=== PATIENT | female | born 1990 | race Caucasian/White ===

== ENCOUNTER 2017-02-14 15:14 | Emergency (ER) | payer OTHER ==
[~2017-02-14] VITALS: Ht 175.3 cm; Wt 73.0 kg
[~2017-02-14 15:14] MED LIST: NORE0.356 PO; [UNRECOGNIZED DRUG - REMARK]
--- NOTE | 2017-02-14 15:20 | NUR ---
bib fiance due to sob x 1 hour. Patient is complaining of pain on right lower rib during inspiration. Patient is aao3, appears in anxious at this time,. Reported nausea, no vomitting. No chest pain,. Skinis warm to touch and non diahoretic. afebrile. vss. gowned and placed on tele monitor. Iv inserted to right wrist 20. blood sample sent to lab
[2017-02-14] MEDS ORDERED: predniSONE 20 MG TABLET ONE (15:48)
[2017-02-14] MEDS ORDERED: ONDANSETRON HCL/PF 4 MG/2 ML VIAL ONE (15:48)
[2017-02-14] MEDS ORDERED: MORPHINE SULFATE INJ 4 MG/ML DISP.SYRIN ONE (15:48)
[2017-02-14 15:50] LABS: BASOPHILS % (AUTO) 0.6 % (0.0-2.0); EOSINOPHILS # (AUTO) 0.1 /CMM (0.0-0.7); EOSINOPHILS % (AUTO) 2.2 % (0.0-6.0); HEMATOCRIT 44 % (33-45); HEMOGLOBIN 14.7 g/dL (11.5-14.8); LYMPHOCYTES # (AUTO) 1.9 /CMM (0.8-4.8); MEAN CORPUSCULAR HEMOGLOBIN 31 PG (26.0-33.0); MEAN CORPUSCULAR HGB CONC 34 g/dl (31.0-36.0); MEAN CORPUSCULAR VOLUME 91 fL (82-100); MONOCYTES # (AUTO) 0.4 /CMM (0.1-1.30); NEUTROPHILS % (AUTO) 61.2 % (43.0-81.0); PLATELET COUNT (AUTO) 231 /CMM (150-450); RDW COEFFICIENT OF VARIATION 12.4 (11.5-15.0); RED BLOOD CELL COUNT(AUTO) 4.83 MIL/uL (4.0-5.2); WHITE BLOOD COUNT (AUTO) 6.4 K/uL (4.3-11.0)
--- NOTE | 2017-02-14 15:56 | NUR ---
medicated pt for pain
--- NOTE | 2017-02-14 15:57 | NUR ---
kong ashanti at
[2017-02-14] MEDS ORDERED: ONDANSETRON HCL/PF 4 MG/2 ML VIAL IVP ONE (16:00)
[2017-02-14] MEDS ORDERED: MORPHINE SULFATE INJ 2 MG/ML DISP.SYRIN IV ONE (16:00)
[2017-02-14] MEDS ORDERED: predniSONE 20 MG TABLET PO ONE (16:00)
[2017-02-14 16:05] LABS: CALCIUM, SERUM 9.5 mg/dL (8.5-10.1); CREATININE 0.9 mg/dL (0.6-1.3); POTASSIUM 3.9 mmol/L (3.5-5.1)
[2017-02-14 16:11] LABS: ALBUMIN 4.8 g/dL (3.4-5.0); BILIRUBIN,DIRECT 0.1 mg/dL (0.0-0.2); BILIRUBIN,TOTAL 1.2 mg/dL (0.2-1.0)
[2017-02-14] MEDS ORDERED: KETOROLAC TROMETHAMINE INJ 30 MG/ML VIAL ONE (16:39)
[2017-02-14] MEDS ORDERED: METOCLOPRAMIDE HCL 10 MG/2 ML VIAL ONE (16:39)
[2017-02-14] MEDS ORDERED: KETOROLAC TROMETHAMINE INJ 30 MG/ML VIAL IV ONE (17:00)
[2017-02-14] MEDS ORDERED: METOCLOPRAMIDE HCL 10 MG/2 ML VIAL IV ONE (17:00)
[2017-02-14 17:24] VITALS: BP 120/70
--- NOTE | 2017-02-14 17:24 | NUR ---
Patient discharged to home in stable condition. Written and verbal after care instructions given. Patient verbalizes understanding of instruction.
== END 2017-02-14 17:25 | disposition home or self-care (01) ==
LOC: ER 15:15
DX: R07.81 Pleurodynia (principal); E11.9 Type 2 diabetes mellitus without complications; F17.200 Nicotine dependence, unspecified, uncomplicated; J45.909 Unspecified asthma, uncomplicated; K58.9 Irritable bowel syndrome, unspecified; Z88.6 Allergy status to analgesic agent
CPT/HCPCS: 36415; 71010; 76705; 80048; 80076; 84703; 85025; 96374; 96375; 99285; A4606; J1885; J2270; J2405; J2765; J7512; Z7610

== ENCOUNTER 2017-03-02 09:24 | Emergency (ER) | payer SELFPAY ==
[~2017-03-02] VITALS: Ht 175.3 cm; Wt 72.6 kg
--- NOTE | 2017-03-02 09:36 | NUR ---
Presents self to ed due to epigastric pain x 2 days, 06/22. Pt also reported nausea and vomitting,. In no acute distress,respiration even and unlabored. Skin is warm to touch and non dipahoretic. Pt is afebrile. Vss. No hematuria nor dysuria. Awaiting for md [place]
--- NOTE | 2017-03-02 09:48 | NUR ---
LAC #20 IV ACCESS BLOOD SAMPLE COLLECTED SENT TO LAB
--- NOTE | 2017-03-02 09:49 | NUR ---
AT BEDSIDE FOR EVAL
--- NOTE | 2017-03-02 09:51 | NUR ---
URINE SAMPLE COLLECTED SENT TO LAB
[2017-03-02] MEDS ORDERED: FAMOTIDINE (20 MG) 20 MG TABLET ONE (09:59)
[2017-03-02] MEDS ORDERED: MAG HYDROX/AL HYDROX/SIMETH 30 ML UDC ONE (09:59)
[2017-03-02] MEDS ORDERED: KETOROLAC TROMETHAMINE INJ 30 MG/ML VIAL IV ONE (10:00)
[2017-03-02] MEDS ORDERED: ONDANSETRON HCL/PF 4 MG/2 ML VIAL IVP ONE (10:00)
[2017-03-02] MEDS ORDERED: IV NS 0.9% 1,000 ML BAG IV ONE (10:00)
[2017-03-02] MEDS ORDERED: MAG HYDROX/AL HYDROX/SIMETH 30 ML UDC PO ONE (10:00)
[2017-03-02] MEDS ORDERED: IV NS 0.9% 1,000 ML ONE (10:00)
[2017-03-02] MEDS ORDERED: FAMOTIDINE (20 MG) 20 MG TABLET PO ONE (10:00)
[2017-03-02] MEDS ORDERED: IV SET PRIMARY PUMP SET 1 EA INFUS.SET MC ONE (10:00)
[2017-03-02] MEDS ORDERED: ONDANSETRON HCL/PF 4 MG/2 ML VIAL ONE (10:00)
[2017-03-02] MEDS ORDERED: KETOROLAC TROMETHAMINE INJ 30 MG/ML VIAL ONE (10:00)
[2017-03-02 10:05] LABS: APPEARANCE,URINE Clear (CLEAR); BILIRUBIN,URINE Negative (NEGATIVE); BLOOD, URINE Negative Ery/uL (NEGATIVE); COLOR,URINE Yellow (YELLOW); KETONES,URINE Negative (NEGATIVE); LEUKOCYTE ESTERASE ,URINE Negative (NEGATIVE); NITRITE, URINE Negative (NEGATIVE); PH,URINE 5.5 (5.0-8.0); PROTEIN,URINE Negative (NEGATIVE); UGLUCOSE Negative (NEGATIVE); UROBILINOGEN,URINE 0.2 EU/dL (0.2)
[2017-03-02 10:06] LABS: PREGNANCY TEST URINE QUAL NEGATIVE (NEGATIVE)
--- NOTE | 2017-03-02 10:28 | NUR ---
XRAY AT BEDSIDE
[2017-03-02] MEDS ORDERED: METOCLOPRAMIDE HCL 10 MG/2 ML VIAL ONE (10:49)
[2017-03-02] MEDS ORDERED: METOCLOPRAMIDE HCL 10 MG/2 ML VIAL IV ONE (11:00)
--- NOTE | 2017-03-02 11:41 | NUR ---
IV removed. Catheter intact and site benign. Pressure and 4x4 applied to site. No bleeding noted. Patient discharged to home in stable condition. Written and verbal after care instructions given. Patient verbalizes understanding of instruction.
[2017-03-02 11:42] VITALS: BP 115/78
== END 2017-03-02 11:42 | disposition home or self-care (01) ==
LOC: ER 09:26
DX: R11.2 Nausea with vomiting, unspecified (principal); R19.7 Diarrhea, unspecified; J45.909 Unspecified asthma, uncomplicated; E11.9 Type 2 diabetes mellitus without complications; Z90.6 Acquired absence of other parts of urinary tract; Z88.6 Allergy status to analgesic agent
CPT/HCPCS: 71010-TC; 81000-TC; 84703-TC; A4606; J1885; J2405; J2765; J7030; Z7610